=== PATIENT | male | born 1970 | race Hispanic/Latino ===

== ENCOUNTER 2018-04-21 11:28 | Day surgery (SDC) | payer BC ==
--- NOTE | 2018-04-21 13:40 | Anesthesia Day of Surgery ---
Anesthesia Day of Surgery - Day of Surgery Patient H&P Reviewed: Yes Patient is NPO: Yes Beta Blockers: No Cardiac Clearance: No
--- NOTE | 2018-04-21 13:40 | Anesthesia Consultation ---
Anesthesia Consult and Med Hx Date of service: 04/21/18 - Airway Anesthetic Teeth Evaluation: Good ROM Head & Neck: Adequate Mental/Hyoid Distance: Adequate Mallampati Class: Class III Intubation Access Assessment: Possibly Difficult - Pulmonary Exam CTA: Yes - Cardiac Exam Cardiac Exam: RRR - Pre-Operative Health Status ASA Pre-Surgery Classification: ASA3 Proposed Anesthetic Plan: General - Pulmonary Hx Smoking: Yes (STOPPED X 9 YRS , 1 PPD X 10 YRS) Hx Sleep Apnea: Yes (DX SLEEP APNEA , NO CPAP USE.) - Cardiovascular System Hx Hypertension: Yes (X 1.5 YRS) - Endocrine Hx Renal Disease: Yes (kidney stones) - Other Systems Hx Cancer: No Hx Obesity: Yes
[2018-04-21] MEDS ORDERED: DILAUDID IV PRN (13:44)
[2018-04-21] MEDS ORDERED: ANCEF/STERILE WATER 2 GM/20 ML IV NR (14:00)
[2018-04-21] MEDS ORDERED: LACTATED RINGERS 1,000 ML IV SCH (14:00)
[2018-04-21] MEDS ORDERED: SUBLIMAZE ONE ×2 (15:05)
[2018-04-21] MEDS ORDERED: DIPRIVAN 10 MG/ML IV ONE (15:05)
[2018-04-21] MEDS ORDERED: XYLOCAINE MPF 2% ONE (15:07)
[2018-04-21] MEDS ORDERED: ZOFRAN ONE (15:31)
--- NOTE | 2018-04-21 16:04 | Post Operative Note ---
Date of procedure: 04/21/18 Pre-op diagnosis: r renal stones Post-op diagnosis: same Findings: as above Procedure: r eswl Anesthesia: YANE Surgeon: AGNES CALDERON Estimated blood loss: none Pathology: none Condition: stable Disposition: PACU
--- NOTE | 2018-04-21 16:05 | Discharge Summary ---
Short Stay Discharge Plan Activity: other (no straining) Weight Bearing Status: Full Weight Bearing Diet: low fat, low salt Durable Medical Equipment Needed Upon Discharge: other (has stnet ) Follow up with: PRIMARY CARE, [Primary Care Provider] - 7 Days AGNES CALDERON MD [Staff Physician] - 7 Days Forms: [facility]
[2018-04-21 16:52] VITALS: BP 120/73
--- NOTE | 2018-04-21 19:12 | Operative Report ---
PREOPERATIVE DIAGNOSIS: Right ureteropelvic junction and renal stone. POSTOPERATIVE DIAGNOSIS: Right ureteropelvic junction and renal stone. PROCEDURE: Right ESWL. SURGEON: Sixto Robison MD ANESTHESIA: General. FINDINGS: This gentleman with two stones 1 right at the UPJ just about a 6 mm and one in the kidney, which is about 9-10 mm. He now presents for treatment. DESCRIPTION OF PROCEDURE: The patient was brought to the operating room and placed on the operative table. Following induction of anesthesia, the stone was well localized, both the AP and oblique image. Shocks were begun at 1 kV increased to a maximum of 8 kV. We focused mostly on the ureteral stone. Once that was correct, we also treated the renal stone as much as we could. The patient tolerated the procedure well. 2500 shocks were given, brought to recovery in stable condition. JOB# [id number] CHRISTINE/MICHAEL
--- NOTE | 2018-04-22 07:38 | XRay Report ---
AP ABDOMEN: HISTORY: Right kidney stone/stent. No comparison. A right ureteral stent extends from the right renal pelvis to the bladder. An 8 mm calcification overlies the mid right kidney. There are 2 calcifications overlying the proximal right ureteral stent measuring 4 mm and 6 mm. A few punctate calyceal stones are suspected in in the mid left renal shadow. The bowel gas pattern is unremarkable. IMPRESSION: Bilateral nephrolithiasis and right ureteral stones as described.
== END 2018-04-21 11:29 | disposition home or self-care (01) ==
LOC: OR 11:28
PROVIDERS: ATTEND Urology
DX: N20.0 Calculus of kidney (principal); I10 Essential (primary) hypertension; G47.30 Sleep apnea, unspecified; E66.9 Obesity, unspecified; Z68.34 Body mass index [BMI] 34.0-34.9, adult; Z98.890 Other specified postprocedural states; Z87.891 Personal history of nicotine dependence; Z79.899 Other long term (current) drug therapy; Z79.01 Long term (current) use of anticoagulants
CPT/HCPCS: 36415; 50590; 74018; 84132; J2405; J2704; J3010; J7120